=== PATIENT | female | born 1990 | race Caucasian/White ===

== ENCOUNTER 2017-12-06 11:45 | Emergency (ER) | payer BC ==
[2017-12-06 12:23] VITALS: BP 142/84
[2017-12-06] MEDS ORDERED: predniSONE TAB* 20 MG PO ONE (12:55)
--- NOTE | 2017-12-06 13:00 | UC ---
Skin Complaint HPI - HPI Summary HPI Summary: day 8 of amoxicillin for strep, began with itchy generalized rash, no respiratory distress, no throat swelling - History of Current Complaint Hx Obtained From: Patient Hx Last Menstrual Period: 3 mom control pill ?: No Onset/Duration: Sudden Onset, Lasting Days - 2, Worse Since - taking amoxicillin last night Timing: Constant Pain Intensity: 0 Location: Diffuse Character: Pruritus, Redness, Raised Aggravating Factor(s): Nothing Alleviating Factor(s): Nothing Associated Signs & Symptoms: Positive: Rash <Florence Lopez - Last Filed: 12/06/17 13:06> <Yarelis Espitia - Last Filed: 12/06/17 14:09> - History of Current Complaint Chief Complaint: UCRash Time Seen by Provider: 12/06/17 12:42 Stated Complaint: RASH - Allergy/Home Medications Allergies/Adverse Reactions: Allergies Allergy/AdvReac Type Severity Reaction Status Date / Time No Known Allergies Allergy Unverified 04/21/13 14:40 Review of Systems Constitutional: Negative Skin: Rash - generalized itchy Eyes: Negative ENT: Negative Respiratory: Negative Cardiovascular: Negative Gastrointestinal: Negative Genitourinary: Negative Motor: Negative Neurovascular: Negative Musculoskeletal: Negative Neurological: Negative Psychological: Negative Is Patient Immunocompromised?: No All Other Systems Reviewed And Are Negative: Yes <Florence Lopez - Last Filed: 12/06/17 13:06> PMH/Surg Hx/FS Hx/Imm Hx Previously Healthy: Yes - Surgical History Surgical History: None - Family History Known Family History: Positive: None - Social History Occupation: Employed Full-time Lives: With Family Alcohol Use: Weekly Substance Use Type: None Smoking Status (MU): Never Smoked Tobacco <Florence Lopez - Last Filed: 12/06/17 13:06> Physical Exam Triage Information Reviewed: Yes Appearance: Well-Appearing, No Pain Distress, Well-Nourished Vital Signs: Initial Vital Signs Temp 99.4 F 12/06/17 12:17 Pulse 88 12/06/17 12:17 Resp 18 12/06/17 12:17 BP 142/84 12/06/17 12:17 Pulse Ox 100 12/06/17 12:17 Vital Signs Reviewed: Yes Eye Exam: Normal Eyes: Positive: Conjunctiva Clear ENT Exam: Normal ENT: Positive: Normal ENT inspection, Hearing grossly normal, Pharynx normal, TMs normal, Uvula midline. Negative: Nasal congestion, Nasal drainage, Tonsillar swelling, Tonsillar exudate, Trismus, Muffled voice, Hoarse voice, Sinus tenderness Dental Exam: Normal Neck exam: Normal Neck: Positive: Supple, Nontender, No Lymphadenopathy Respiratory Exam: Normal Respiratory: Positive: Chest non-tender, Lungs clear, Normal breath sounds, No respiratory distress, No accessory muscle use Cardiovascular Exam: Normal Cardiovascular: Positive: RRR, No Murmur, Pulses Normal, Brisk Capillary Refill Musculoskeletal Exam: Normal Musculoskeletal: Positive: Strength Intact, ROM Intact, No Edema Neurological Exam: Normal Neurological: Positive: Alert, Muscle Tone Normal Psychological Exam: Normal Skin Exam: Other Skin: Positive: rashes <Florence Lopez - Last Filed: 12/06/17 13:06> Vital Signs: Initial Vital Signs Temp 99.4 F 12/06/17 12:17 Pulse 88 12/06/17 12:17 Resp 18 12/06/17 12:17 BP 142/84 12/06/17 12:17 Pulse Ox 100 12/06/17 12:17 <Yarelis Espitia - Last Filed: 12/06/17 14:09> Course/Dx - Course Course Of Treatment: Stop amoxicillin, prednisone, benadryl, rest follow wbp with pcp - Diagnoses Provider Diagnoses: elevated blood pressure with dx of hypertension, acute allergic response to amoxicillin <Florence Lopez - Last Filed: 12/06/17 13:06> Discharge - Sign-Out/Discharge Documenting (check all that apply): Discharge - Billing Disposition and Condition Condition: STABLE Disposition: HOME <Florence Lopez - Last Filed: 12/06/17 13:06> - Billing Disposition and Condition Condition: STABLE Disposition: HOME <Yarelis Espitia - Last Filed: 12/06/17 14:09> - Discharge Plan Condition: Stable Disposition: HOME Prescriptions: predniSONE TAB* [Deltasone TAB*] 20 mg PO DAILY #9 tab Patient Education Materials: Antibiotic Medication Allergy (ED), Hypertension ( ED) Forms: *Work Release Referrals: Ifeoma Wright MD [Primary Care Provider] - 2 Weeks Attestation Statement User Type: Provider - I was available for consult. This patient was seen by the advanced practice provider. The patient was not presented to, seen by, or examined by me.-Peggy <Yarelis Espitia - Last Filed: 12/06/17 14:09>
== END 2017-12-06 13:19 | disposition home or self-care (01) ==
LOC: UCEAST 11:45
DX: L27.0 Generalized skin eruption due to drugs and medicaments taken internally (principal); T36.0X5A Adverse effect of penicillins, initial encounter; R03.0 Elevated blood-pressure reading, without diagnosis of hypertension
CPT/HCPCS: 99212; G0463; J7512